=== PATIENT | female | born 1970 | race Caucasian/White ===

== ENCOUNTER 2017-01-12 16:15 | Emergency (ER) | payer OTHER ==
[2017-01-12 16:23] VITALS: BMI 22.9
--- NOTE | 2017-01-12 16:34 | PDOC ---
History of Present Illness - General History Source: Patient Exam Limitations: No Limitations - History of Present Illness Initial Comments: 01/12/17 17:11 The patient is 46 year old female, with a significant past medical history of hypothyroidism and depression, who presents to the emergency department complaining of nausea, vomiting, diarrhea, diffuse body aches, and a headache since last night. The patient reports she was feeling fine all day yesterday, however, around midnight she woke up with RLQ abdominal pain. The patient reports the pain in her RLQ is a constant throbbing sensation, almost as if she sprained a muscle. She reports her pain is exacerbated with movement or crossing her legs(becomes a sharp pain). At first she thought it was cramps associated with her menstrual period, so she reports taking a hot shower, which provided no relief. She reports 1 emetic episode in the shower. The patient reports shes had 3 episodes of diarrhea and 3 emetic episodes since her symptoms began. She reports going out to lunch with her yesterday, however, she reports not eating anything out of the ordinary. The patient reports associated chills and night sweats. The patient reports her headache is the worst shes ever experienced. Today she reports taking her daughter to school thinking she felt better. However, this afternoon she reports everything hurts, almost as if she had poison in her body. The patient reports taking tylenol with no relief. The patient reports dysuria secondary to recent bladder infection, but denies hematuria, frequency or urgency. The patient denies any fever, cough, headache, or dizziness. The patient denies any sick contacts, and states she is supposed to be flying out to [place] in 18 hours. Allergies: None reported. Past Surgical History: Achilles tendon repair. Social History: Non-smoker. Denies alcohol or drug use. <Virginia Giron - Last Filed: 01/12/17 20:49> - General History Source: Patient Exam Limitations: No Limitations <Ruma Hernández - Last Filed: 01/18/17 10:10> - General Chief Complaint: Vomiting/Diarrhea Stated Complaint: N/V/D Time Seen by Provider: 01/12/17 16:18 Past History <Virginia Giron - Last Filed: 01/12/17 20:49> - Past Medical History Anemia: No Asthma: No Cancer: No Cardiac Disorders: No CVA: No COPD: No CHF: No Dementia: No Diabetes: No GI Disorders: No Disorders: No HTN: No Hypercholesterolemia: No Liver Disease: No Seizures: No Thyroid Disease: Yes (hypo) - Surgical History Abdominal Surgery: No Appendectomy: No Cardiac Surgery: No Cholecystectomy: No Lung Surgery: No Neurologic Surgery: No Orthopedic Surgery: Yes (Repair of Achiles Tendon) - Psycho/Social/Smoking Cessation Hx Anxiety: No Suicidal Ideation: No Smoking History: Never smoked Hx Alcohol Use: Yes Drug/Substance Use Hx: No Substance Use Type: Alcohol Hx Substance Use Treatment: No <Ruma Hernández - Last Filed: 01/18/17 10:10> - Past Medical History Allergies/Adverse Reactions: Allergies Allergy/AdvReac Type Severity Reaction Status Date / Time No Known Allergies Allergy Verified 12/08/15 06:48 Home Medications: Ambulatory Orders Ascorbate Calcium [Vitamin C] 500 mg PO DAILY 11/25/15 Bupropion HCl [Wellbutrin Xl] 300 mg PO DAILY 11/25/15 Cholecalciferol (Vitamin D3) [Vitamin D] 2,000 unit PO DAILY 11/25/15 Levothyroxine [Synthroid -] 25 mcg PO DAILY 11/25/15 Ciprofloxacin [Cipro (Restricted To Id)] 250 mg PO BID #14 tablet 01/13/17 Review of Systems - Review of Systems Able to Perform ROS?: Yes Comments:: 01/12/17 17:11 GENERAL/CONSTITUTIONAL:Yes: +fever, +chills, +diffuse body aches. No: weakness, loss of appetite. HEAD, EYES, EARS, NOSE AND THROAT: No: change in vision, ear pain, discharge, sore throat, throat swelling. CARDIOVASCULAR: No: chest pain, lightheadedness, palpitations, syncope RESPIRATORY: No: cough, shortness of breath, wheezing, hemoptysis, stridor. GASTROINTESTINAL: Yes: +abdominal pain(RLQ), +nausea, +vomiting, +diarrhea.No: rectal bleeding, constipation. GENITOURINARY: Yes: +dysuria. No: hematuria, frequency, urgency, flank pain. MUSCULOSKELETAL: Yes: +back pain, +neck pain. No: joint pain, muscle swelling or pain SKIN AND BREASTS: No: lesions, pallor, rash or easy bruising. NEUROLOGIC: Yes:+headache. No:vertigo, paresthesias, weakness ENDOCRINE: No: unexplained weight gain or loss HEMATOLOGIC/LYMPHATIC: No: anemia, easy bleeding, swelling nodes <[email or web address] - Last Filed: 01/12/17 20:49> *Physical Exam - Vital Signs Last Vital Signs Temp Pulse Resp BP Pulse Ox 99.3 F 83 18 129/83 98 01/12/17 16:19 01/12/17 16:19 01/12/17 16:19 01/12/17 17:06 01/12/17 16:19 - Physical Exam Comments: 01/12/17 17:11 GENERAL: The patient appears uncomfortable. HEAD: Normal with no signs of trauma. EYES: PERRLA, EOMI, sclera anicteric, conjunctiva clear. ENT: Ears normal, nares patent, oropharynx clear without exudates. Moist mucous membranes. NECK: Normal range of motion, supple without lymphadenopathy, JVD, or masses. LUNGS: Breath sounds equal, clear to auscultation bilaterally. No wheezes, and no crackles. HEART:Regular rate and rhythm, normal S1 and S2 without murmur, rub or gallop. ABDOMEN: Soft, nontender, normoactive bowel sounds. No guarding, no rebound. EXTREMITIES: Normal range of motion, no edema. No clubbing or cyanosis. No erythema, or tenderness. No nuchal rigidity NEUROLOGICAL: Cranial nerves II through XII grossly intact. Normal speech. No focal neurological deficits. MUSCULOSKELETAL: Back non-tender to palpation, no CVA tenderness SKIN: Warm, Dry, normal turgor, no rashes or lesions noted. <Virginia Giron - Last Filed: 01/12/17 20:49> - Vital Signs Last Vital Signs Temp Pulse Resp BP Pulse Ox 0/0 01/12/17 16:19 <Ruma Hernández - Last Filed: 01/18/17 10:10> ED Treatment Course - LABORATORY CBC & Chemistry Diagram: 01/12/17 16:50 01/12/17 16:50 - ADDITIONAL ORDERS Additional order review: 01/12/17 16:50 RBC 4.53 MCV 91.9 MCHC 33.2 RDW 13.0 MPV 8.6 Neutrophils % Y Lymphocytes % Y - RADIOLOGY Radiograph Interpretation: 01/12/17 18:55 EXAM: CXR INTERPRETED BY: Dr. Malagon REVIEWED BY: Dr. Hernández IMPRESSION: Unremarkable examination EXAM: Head CT INTERPRETED BY: Dr. Malagon REVIEWED BY: Dr. Hernández IMPRESSION: No evidence of a focal intracranial lesion or hemorrhage seen. EXAM: CT Abdomen and Pelvis INTERPRETED BY: Dr. Malagon REVIEWED BY: Dr. Bradshaw IMPRESSION: Limited distention of the mid sigmoid colon, cannot rule out wall thickening. Further evaluation is needed. A few diverticula in the sigmoid colon without evidence of acute diverticulitis. Otherwise, there is no CT evidence of an acute process in the abdomen and pelvis. Appendix was not visualized. Degenerative disc disease at L4-L5 and to a lesser extent at L2-L3 level. - Medications Given in the ED: ED Medications Discontinued Medications Generic Name Dose Route Start Last Admin Trade Name Freq PRN Reason Stop Dose Admin Metoclopramide HCl 10 mg 01/12/17 16:35 01/12/17 17:06 Reglan Injection - IVPB 01/12/17 16:36 10 mg ONCE ONE Administration <Virginia Giron - Last Filed: 01/12/17 20:49> - LABORATORY CBC & Chemistry Diagram: 01/12/17 16:50 01/12/17 16:50 <Ruma Hernández - Last Filed: 01/18/17 10:10> Medical Decision Making - Medical Decision Making 01/12/17 16:34 A portion of this note was documented by scribe services under my direction. I have reviewed the details of the note, within reason, and agree with the documentation with the following case summary and management plan written by me. Nursing documentation reviewed and incorporated into medical decision making This is a 46 yo F who has a h/o hypothyroidism and depression who presents to the ER with a complaint of headache, nausea, vomiting, diarrhea, diffuse myalgias. She awoke early this morning with RLQ abdominal pain (constant throbbing sensation which she describes as a sprained muscle). Worse with movement or crossing her leg (right over left). Several episodes of vomiting. No change in diet Subjective fevers and chills beginning this afternoon she reports everything hurts, almost as if she had poison in her body. Took tylenol, no relief. (+) dysuria secondary to recent bladder infection, but denies hematuria, frequency or urgency. No cough Pt reports frontal headache On examination Pt is ill appearing, tearful on examination No nuchal rigidity RRR Lungs clear RLQ tenderness No flank pain will do labs will do CT head and Abd/pelvis Will send influenza Will check UA Will give IVF, Reglan, Pain medications Will re assess Labs significant for leukocytosis Possible UTI Head CT negative Pending CT abd an pelvis Pt states she feels a little better Continues to have headache Pt signed out to Dr. Bradshaw Pending differential on UA Pending CT abd and pelvis <Ruma Hernández - Last Filed: 01/18/17 10:10> *DC/Admit/Observation/Transfer - Attestations Scribe Attestion: 01/12/17 17:12 Documentation prepared by Virginia Giron, acting as medical photographer for Ruma Hernández MD. <Virginia Giron - Last Filed: 01/12/17 20:49> <Ruma Hernández - Last Filed: 01/18/17 10:10> Diagnosis at time of Disposition: Abdominal pain, Vomiting, UTI (urinary tract infection) - Discharge Dispostion Disposition: HOME Condition at time of disposition: Stable - Prescriptions Prescriptions: Ciprofloxacin [Cipro (Restricted To Id)] 250 mg PO BID #14 tablet - Patient Instructions Printed Discharge Instructions: DI for Abdominal Pain-Adult Additional Instructions: clear liquids,advance diet cautiously cipro 250mg twice a day for 5 days return immediately if you have persistent pain,fever or vomiting
[2017-01-12] MEDS ORDERED: SODIUM CHLORIDE 1,000 ML IV STA ×2 (16:35→18:14)
[2017-01-12] MEDS ORDERED: ACETAMINOPHEN 1000 MG/100 ML VIAL (NON FORMULARY) IVPB ONE (16:35)
[2017-01-12] MEDS ORDERED: METOCLOPRAMIDE HCL INJECTION 10 MG/2 ML VIAL IVPB ONE (16:35)
[2017-01-12 16:39] VITALS: TEMP 99.3
[2017-01-12] MEDS ORDERED: ACETAMINOPHEN INJECTION 100 ML IVPB ONE (16:59)
[2017-01-12 17:04] LABS: MCH 30.5 pg (25.7-33.7); MCHC 33.2 g/dl (32.0-36.0); MEAN CELL VOLUME 91.9 fl (80-96); MEAN PLT VOLUME 8.6 fl (7.5-11.1); PLATELET COUNT 338 K/MM3 (134-434); WHITE BLOOD COUNT 17.3 K/mm3 (4.0-10.0)
[2017-01-12 17:15] LABS: ACTIVATED PTT 25.8 SECONDS (24.0-38.9)
[2017-01-12 17:17] LABS: ALBUMIN 4.2 g/dl (3.5-5.0); ALK PHOS 54 U/L (32-92); ANION GAP 5 (8-16); BILIRUBIN,TOTAL 1.3 mg/dl (0.2-1.0); CALCIUM 8.9 mg/dl (8.4-10.2); CO2 24 mmol/L (22-28); CREATININE 0.8 mg/dl (0.6-1.3); GLUCOSE,RANDOM 114 mg/dl (74-106); SGOT/AST 30 U/L (10-42); SGPT/ALT 17 U/L (10-40); TOT PROT 7.3 g/dl (6.4-8.3)
[2017-01-12 17:19] LABS: INR 1.14 (0.82-1.09); PROTHROMBIN TIME (PATIENT) 12.7 SEC (10.2-13.0)
[2017-01-12 18:06] LABS: URINE APPEARANCE Clear; URINE BILIRUBIN Negative (NEGATIVE); URINE GLUCOSE (UA) Negative (NEGATIVE); URINE KETONE 1+ (NEGATIVE); URINE NITRITE Negative (NEGATIVE); URINE UROBILINOGEN 0.2 E.U/dl (0.2-1.0)
[2017-01-12 18:07] LABS: URINE BLOOD 1+ (NEGATIVE); URINE COLOR YELLOW; URINE LEUK ESTERASE 2+ (NEGATIVE); URINE PROTEIN 2+ (NEGATIVE)
[2017-01-12] MEDS ORDERED: morphine CARPU-JECT 4 MG/1 ML DISP.SYRIN IVPUSH ONE ×2 (18:09→20:39)
[2017-01-12 19:47] LABS: URINE BACTERIA MODERATE /hpf (NEGATIVE); URINE WBC 15-25 (3-5)
[2017-01-12] MEDS ORDERED: morphine CARPU-JECT 10 MG/1 ML DISP.SYRIN ONE (20:38)
[2017-01-12] MEDS ORDERED: ONDANSETRON 4 MG/2 ML VIAL ONE (20:38)
[2017-01-12] MEDS ORDERED: ONDANSETRON 4 MG/2 ML VIAL IVPUSH ONE (20:39)
--- NOTE | 2017-01-12 20:41 | PDOC ---
*Physical Exam - Vital Signs Last Vital Signs Temp Pulse Resp BP Pulse Ox 99.3 F 83 18 129/83 98 01/12/17 16:19 01/12/17 16:19 01/12/17 16:19 01/12/17 17:06 01/12/17 16:19 ED Treatment Course - LABORATORY CBC & Chemistry Diagram: 01/12/17 16:50 01/12/17 16:50 - ADDITIONAL ORDERS Additional order review: Laboratory Results 01/12/17 01/12/17 01/12/17 17:20 16:50 16:50 INR PTT (Actin FS) Sodium Potassium Chloride Carbon Dioxide Anion Gap BUN Creatinine Creat Clearance w eGFR Random Glucose Lactic Acid 0.934 Calcium Total Bilirubin AST ALT Alkaline Phosphatase Total Protein Albumin Serum , Qual Negative Urine Color Yellow Urine Appearance Clear Urine pH 6.0 Ur Specific [place] 1.015 Urine Protein 2+ H Urine Glucose (UA) Negative Urine Ketones 1+ H Urine Blood 1+ H Urine Nitrite Negative Urine Bilirubin Negative Urine Urobilinogen 0.2 e.u/dl Ur Leukocyte Esterase 2+ H Urine RBC 2-3 Urine WBC 15-25 Ur Epithelial Cells Few Urine Bacteria Moderate 01/12/17 01/12/17 16:50 16:50 INR 1.14 PTT (Actin FS) 25.8 L Sodium 130 L Potassium 4.0 Chloride 101 Carbon Dioxide 24 Anion Gap 5 L BUN 16 Creatinine 0.8 Creat Clearance w eGFR > 60 Random Glucose 114 H Lactic Acid Calcium 8.9 Total Bilirubin 1.3 H AST 30 ALT 17 Alkaline Phosphatase 54 Total Protein 7.3 Albumin 4.2 Serum , Qual Urine Color Urine Appearance Urine pH Ur Specific [place] Urine Protein Urine Glucose (UA) Urine Ketones Urine Blood Urine Nitrite Urine Bilirubin Urine Urobilinogen Ur Leukocyte Esterase Urine RBC Urine WBC Ur Epithelial Cells Urine Bacteria 01/12/17 16:50 Influenza Types A,B Antigen (RUBIN) - Final Nasopharyngeal Swab - Final 01/12/17 16:50 RBC 4.53 MCV 91.9 MCHC 33.2 RDW 13.0 MPV 8.6 Neutrophils % 86.0 H Lymphocytes % 5.0 L Monocytes % 6.0 - Medications Given in the ED: ED Medications Discontinued Medications Generic Name Dose Route Start Last Admin Trade Name Freq PRN Reason Stop Dose Admin Acetaminophen 1,000 mg 01/12/17 16:35 01/12/17 17:17 Ofirmev Injection - IVPB 01/12/17 16:36 1,000 mg ONCE ONE Administration Sodium Chloride 1,000 mls @ 1,000 mls/hr 01/12/17 16:35 01/12/17 17:06 Normal Saline - IV 01/12/17 17:34 1,000 mls/hr ASDIR STA Administration Sodium Chloride 1,000 mls @ 1,000 mls/hr 01/12/17 18:14 01/12/17 19:06 Normal Saline - IV 01/12/17 19:13 1,000 mls/hr ASDIR STA Administration Metoclopramide HCl 10 mg 01/12/17 16:35 01/12/17 17:06 Reglan Injection - IVPB 01/12/17 16:36 10 mg ONCE ONE Administration Morphine Sulfate 4 mg 01/12/17 18:09 01/12/17 18:22 Morphine Injection - IVPUSH 01/12/17 18:10 Not Given ONCE ONE Progress Note - Progress Note Progress Note: Care of this patient received from Dr. Hernández. Abdominal/pelvic CT with contrast performed. This showed limited distention of the mid sigmoid colon without evidence of diverticulitis; no other colonic abnormality seen. There is no CT evidence of acute process in the abdomen or pelvis. However, the patient appendix was not visualized. These results were discussed with the patient. She still has some discomfort in the area. Patient states that she has a history of ovarian cyst rupture and that this pain resembles the pain she has had with ovarian issues. Because of Ovarian itorsion cannot be ruled out by CT, pelvic ultrasound was performed. Ultrasound of the pelvis was unremarkable with normal vascular flow in both ovaries. Mention was made of fluidfilled small bowel loops in the mid lower pelvis and right adnexa. Results discussed with the patient and her . She is no longer nauseated at this point and pain is milder. Gastroenteritis is a possibility here, although early appendicitis cannot be fully ruled out. Patient and her understand this. Urinalysis also shows evidence of UTI. Patient relates that she had a urinary tract infection 3 weeks ago and was treated with nitrofurantoin. Patient strongly prefers to go home because of her young children. It was advised that she return to the emergency room tomorrow if she has persistent localized right lower quadrant pain, or experiences severe generalized abdominal pain/persistent vomiting/fever. The patient and her have a trip to [place] with flight leaving at 1 AM on January 14. The patient was strongly advised to return to the ER and not pursue travel plans if pain persists, especially in light of a very prolonged trip Meanwhile, the patient will be started on ciprofloxacin 250 milligrams twice a day (first dose here). She should continue clear liquid diet and advance diet very slowly as tolerated. Patient will be contacted (message left on voicemail) when results of culture and sensitivity of urine *DC/Admit/Observation/Transfer Diagnosis at time of Disposition: Abdominal pain Qualifiers: Abdominal location: right lower quadrant Qualified Code(s): R10.31 - Right lower quadrant pain Vomiting Qualifiers: Vomiting type: unspecified UTI (urinary tract infection) Qualifiers: Urinary tract infection type: acute cystitis - Discharge Dispostion Disposition: HOME Condition at time of disposition: Stable - Patient Instructions Printed Discharge Instructions: DI for Abdominal Pain-Adult Additional Instructions: clear liquids,advance diet cautiously cipro 250mg twice a day for 5 days return immediately if you have persistent pain,fever or vomiting
[2017-01-12] MEDS ORDERED: CIPROFLOXACIN 250 MG TABLET (RESTRICTED TO ID) PO ONE (22:59)
[2017-01-12 23:06] VITALS: BP 130/77; PULSE 77
== END 2017-01-12 23:08 | disposition home or self-care (01) ==
LOC: FER 16:15
PROC: 3E033NZ Introduction of Analgesics, Hypnotics, Sedatives into Peripheral Vein, Percutaneous Approach (ICD-10-PCS; principal; 2017-01-12)
PROC: 3E033GC Introduction of Other Therapeutic Substance into Peripheral Vein, Percutaneous Approach (ICD-10-PCS; 2017-01-12)
PROC: 3E0337Z Introduction of Electrolytic and Water Balance Substance into Peripheral Vein, Percutaneous Approach (ICD-10-PCS; 2017-01-12)
DX: R10.31 Right lower quadrant pain (principal)
CPT/HCPCS: 36415; 70450-TC; 71010-TC; 74177-TC; 76856-TC; 80053; 81003; 81015; 83605; 84703; 85025; 85610; 85730; 87040; 87086; 87186; 87804; 99283-25